=== PATIENT | female | born 1980 | race Hispanic/Latino ===

== ENCOUNTER 2016-11-16 12:13 | Emergency (ER) | payer OTHER ==
[~2016-11-16] VITALS: Ht 162.6 cm; Wt 65.0 kg
[2016-11-16] MEDS ORDERED: KETOROLAC 30 MG/ML VIAL (J1885) IV ONE (14:00)
[2016-11-16 14:17] LABS: BASO % 0.4 % (0.0-1.0); EOS # 0.1 K/mm3 (0.0-0.50); EOS % 1.7 % (0.0-3.0); LARGE UNSTAINED CELL # 0.1 K/mm3 (0.0-0.4); LARGE UNSTAINED CELL % 1.5 % (0.0-4.0); LYMPH # 1.2 K/mm3 (1.5-4.5); LYMPH % 23.2 % (24.0-44.0); MEAN CORPUSCULAR HEMOGLOBIN 30.7 pg (27.0-33.0); MEAN CORPUSCULAR HGB CONC 34.4 g/dl (32.0-36.5); MEAN CORPUSCULAR VOLUME 89.4 fl (80.0-96.0); MONO # 0.2 K/mm3 (0.0-0.8); MONO % 3.9 % (0.0-5.0); NEUTROPHILS # 3.5 K/mm3 (1.8-7.7); NEUTROPHILS % 69.5 % (36.0-66.0); PLATELET COUNT, AUTOMATED 144 k/mm3 (150-450); RED CELL DISTRIBUTION WIDTH 12.4 % (11.5-14.5)
[2016-11-16 15:29] LABS: ANION GAP 6 MEQ/L (8-16); BLOOD UREA NITROGEN 10 MG/DL (7-18); CALCIUM LEVEL 8.2 MG/DL (8.5-10.1); CARBON DIOXIDE LEVEL 29 MEQ/L (21-32); CHLORIDE LEVEL 108 MEQ/L (98-107); CREATININE FOR GFR 0.55 MG/DL (0.55-1.02); GLOMERULAR FILTRATION RATE > 60.0 (>60); GLUCOSE, FASTING 76 MG/DL (70-105); POTASSIUM SERUM 3.9 MEQ/L (3.5-5.1); SODIUM LEVEL 143 MEQ/L (136-145)
--- NOTE | 2016-11-16 15:33 | REP ---
Clinical: Left adnexal pain . Technique: Transabdominal pelvic ultrasound followed by transvaginal examination for better evaluation of the endometrium and adnexa with color Doppler evaluation of the ovaries. Findings: Bladder is unremarkable and measures 3.4 x 3.4 x 1.9 cm . Normal anteverted uterus measures 10.3 x 5.8 x 7.1 cm . The endometrial complex measures 6.9 mm thickness. No discrete uterine or endometrial abnormalities are appreciated. Bilateral ovaries are normal in appearance and vascularity without evidence for torsion. Right ovary measures 4.1 x 3.1 x 3.2 cm with 2.4 cm dominant follicle ; R I = 0.51 . Left ovary measures 2.2 x 1.8 x 1.8 cm ; R I = 0.48 . No pelvic fluid or adnexal mass lesion . Impression: 1. normal pelvic ultrasound. 2. 2.4 cm dominant follicle in the right ovary. 3. No torsion, free fluid, or adnexal mass lesion. Signed by Darren Lerner MD 11/16/2016 03:26 P
[2016-11-16] MEDS ORDERED: SIME1CAP PO (15:51)
[2016-11-16] MEDS ORDERED: IBUP-1022 PO (15:51)
[2016-11-16] MEDS ORDERED: MIRA3350 PO (15:51)
[2016-11-16 15:56] VITALS: BP 105/77
== END 2016-11-16 16:03 | disposition home or self-care (01) ==
LOC: M ED 12:13
DX: R10.32 Left lower quadrant pain (principal)
CPT/HCPCS: 76830; 76856; 80048; 81001; 81025; 85025; 93976; 96374; 99283; J1885

== ENCOUNTER → 2017-12-26 | Outpatient (REF) | payer OTHER ==
[2017-12-26 13:00] LABS: APPEARANCE, URINE HAZY (CLEAR); BACTERIA, URINE AUTO NEGATIVE (NEGATIVE); BILIRUBIN, URINE AUTO NEGATIVE (NEGATIVE); BLOOD, URINE BLOOD NEGATIVE (NEGATIVE); COLOR, URINE YELLOW (YELLOW); GLUCOSE, URINE (UA) AUTO NEGATIVE (NEGATIVE); KETONE, URINE AUTO NEGATIVE (NEGATIVE); LEUKOCYTE ESTERASE, URINE AUTO NEGATIVE (NEGATIVE); MUCUS, URINE SMALL (NEGATIVE); NITRITE, URINE AUTO NEGATIVE (NEGATIVE); PROTEIN, URINE AUTO NEGATIVE (NEGATIVE); RBC, URINE AUTO 1 /HPF (0-3); SPECIFIC GRAVITY URINE AUTO 1.021 (1.002-1.035); SQUAMOUS EPITHELIAL CELL UR AU 4 /HPF (0-6); UROBILINOGEN, URINE AUTO 0.2 mg/dL (0.0-2.0); WBC, URINE AUTO 1 /HPF (0-3)
== END ==
LOC: M LAB REF 12:24
DX: N39.0 Urinary tract infection, site not specified (principal); N89.8 Other specified noninflammatory disorders of vagina
CPT/HCPCS: 81001

== ENCOUNTER → 2017-12-29 | Outpatient (CLI) | payer OTHER | LOC: M RAD 10:21 | DX: R10.2 Pelvic and perineal pain (principal) | CPT/HCPCS: 76856 ==

== ENCOUNTER 2018-10-27 10:11 | Day surgery (SDC) | payer OTHER ==
[~2018-10-27] VITALS: Ht 162.6 cm; Wt 66.4 kg
[~2018-10-27 10:11] MED LIST: IBUP-1022 PO; LR 1,000 ML IV ONE; MIRA3350 PO; SIME1CAP PO
[2018-10-27 10:47] LABS: HEMATOCRIT 37.6 % (36.0-47.0); HEMOGLOBIN 12.6 g/dl (12.0-15.5); MEAN CORPUSCULAR HEMOGLOBIN 29.8 pg (27.0-33.0); MEAN CORPUSCULAR HGB CONC 33.5 g/dl (32.0-36.5); MEAN CORPUSCULAR VOLUME 88.9 fl (80.0-96.0); PLATELET COUNT, AUTOMATED 160 10^3/uL (150-450); RED BLOOD COUNT 4.23 10^6/uL (4.00-5.40); WHITE BLOOD COUNT 5.3 10^3/uL (4.0-10.0)
[2018-10-27 11:08] LABS: HCG, SERUM QUALITATIVE NEGATIVE (NEGATIVE)
[2018-10-27] MEDS ORDERED: LIDOCAINE W/EPINEPHRINE 1% 20ML VIAL As Ordered ONE (13:17)
[2018-10-27] MEDS ORDERED: IODINE STRONG SOLN 15 ML BTL As Ordered ONE (13:17)
[2018-10-27] MEDS ORDERED: MIDAZOLAM INJ 2 MG/2 ML VIAL (J2250) As Ordered ONE (13:37)
[2018-10-27] MEDS ORDERED: dexameTHASONE 4 MG/ML 1ML VIAL (J1100) As Ordered ONE (13:37)
[2018-10-27] MEDS ORDERED: fentaNYL 100 MCG/2 ML INJECTION (J3010) As Ordered ONE (13:37)
[2018-10-27] MEDS ORDERED: LIDOCAINE 2% INJ 100 MG/5 ML SDV (FOR ANES.) As Ordered ONE (13:37)
[2018-10-27] MEDS ORDERED: PROPOFOL 200 MG/20 ML VIAL As Ordered ONE (13:37)
[2018-10-27] MEDS ORDERED: ONDANSETRON 4MG/2ML VIAL (J2405) As Ordered ONE (13:37)
[2018-10-27] MEDS ORDERED: KETOROLAC 60 MG/2 ML VIAL (J1885) As Ordered ONE (13:37)
[2018-10-27 14:32] VITALS: BP 141/64
[2018-10-27] MEDS ORDERED: PERCOCET 5MG/325MG TAB PO PRN (15:00)
[2018-10-27] MEDS ORDERED: ONDANSETRON 4MG/2ML VIAL (J2405) IV PRN (15:00)
[2018-10-27] MEDS ORDERED: LR 1,000 ML IV SCH (15:00)
[2018-10-27] MEDS ORDERED: fentaNYL 100 MCG/2 ML INJECTION (J3010) IV PRN (15:00)
--- NOTE | 2018-10-29 13:18 | RO ---
DATE OF PROCEDURE: 10/27/2018 PREPROCEDURE DIAGNOSIS: Cervical dysplasia. POSTPROCEDURE DIAGNOSIS: Cervical dysplasia. PROCEDURE: Looped electrosurgical excision procedure. SURGEON: Dr. Palencia DIETETIC ASSISTANT: None. ANESTHESIA: Monitored anesthesia care (MAC). FLUIDS: 400 mL of lactated Ringers (LR). URINE OUTPUT: 150 mL. ESTIMATED BLOOD LOSS: 3 mL. COMPLICATIONS: None. ANTIBIOTICS: None indicated. DETAILED PROCEDURE DESCRIPTION: The risks, benefits, indications, and alternatives of the procedure were reviewed with the patient and informed consent was obtained. The patient was taken to the operating room where IV sedation was obtained without difficulty. The patient was then placed in the lithotomy position using Cristian stirrups. The patient was then prepped and draped in the usual sterile fashion, and the bladder was drained using an in and out catheter. A surgical time-out was then performed in which the patient's identity and planned procedure were verified with the operative team. A sterile Graves speculum was then placed into the vagina and the cervix was visualized. A paracervical block was then performed using approximately 10 mL of 1% Lidocaine with epinephrine. Lugol's solution was then copiously applied to the cervix, which highlighted a lesion from the 4 to the 7 o'clock position of the cervix. The LEEP device was then set to 60-60 blend and activated. The Loop electrocautery wire was then passed across the external cervical os in a single pass and an adequate tissue sample was collected and sent to pathology for review. Superficial electrocoagulation of the cervical stroma was then performed with excellent hemostasis achieved. Monsel's solution was then applied copiously to the cervix and hemostasis was again assured. All instruments were then removed from the patient's vagina. At the completion of the case, the sponge, instrument and needle counts were correct times two. The patient tolerated the procedure well and was taken to the postanesthesia care unit (PACU) in stable condition. STEPHANIA
== END 2018-10-27 14:35 | disposition home or self-care (01) ==
LOC: M SDC 10:11
PROVIDERS: ATTEND Obstetrics & Gynecology
DX: N87.9 Dysplasia of cervix uteri, unspecified (principal)
CPT/HCPCS: 36415; 57522; 84703; 85027; 88307; J1100; J1885; J2250; J2405; J3010